=== PATIENT | female | born 1990 | race Two or more races ===

== ENCOUNTER 2021-02-03 00:31 | Observation (INO) | payer OTHER ==
[2021-02-03 01:16] LABS: Urine WBC None Seen /hpf (0 - 5)
[2021-02-03 01:38] LABS: Urine Amorphous Crystal FEW /hpf (None Seen); Urine Bacteria FEW /hpf (None Seen); Urine Blood Negative /uL (Negative)
== END 2021-02-03 03:34 | disposition home or self-care (01) ==
LOC: LDRP 00:31
PROVIDERS: ADMIT Obstetrics & Gynecology Obstetrics; ATTEND Obstetrics & Gynecology Obstetrics
DX: O23.43 Unspecified infection of urinary tract in pregnancy, third trimester (principal); Z3A.35 35 weeks gestation of pregnancy
CPT/HCPCS: 59025; 76815; 81001; 81002; 94760; G0378; G0379